=== PATIENT | female | born 1935 | race Two or more races ===

== ENCOUNTER 2021-10-25 11:05 | Emergency (ER) | payer OTHER ==
[~2021-10-25] VITALS: Ht 160 cm; Wt 52.2 kg
[2021-10-25] MEDS ORDERED: TENORMIN50 M1 PO (11:40)
[2021-10-25] MEDS ORDERED: COZAAR50 MG PO (11:40)
[2021-10-25] MEDS ORDERED: IBU800 MG PO (12:49)
[2021-10-30] MEDS ORDERED: LEVOTHYROXINE25 MCG PO (13:33)
== END 2021-10-25 13:02 | disposition home or self-care (01) ==
LOC: ER 11:05
DX: S52.511A Displaced fracture of right radial styloid process, initial encounter for closed fracture (principal); W01.0XXA Fall on same level from slipping, tripping and stumbling without subsequent striking against object, initial encounter; Y93.89 Activity, other specified; Y92.89 Other specified places as the place of occurrence of the external cause; Y99.8 Other external cause status; E03.9 Hypothyroidism, unspecified; I10 Essential (primary) hypertension; Z86.73 Personal history of transient ischemic attack (TIA), and cerebral infarction without residual deficits

== ENCOUNTER 2021-10-31 07:30 | Day surgery (SDC) | payer OTHER ==
[~2021-10-31] VITALS: Ht 160 cm; Wt 54.4 kg
[~2021-10-31 07:30] MED LIST: COZAAR50 MG PO; IBU800 MG PO; LEVOTHYROXINE25 MCG PO; TENORMIN50 M1 PO
== END 2021-10-31 15:45 | disposition home or self-care (01) ==
LOC: CIR.AMB 07:30
PROVIDERS: ATTEND Orthopaedic Surgery
DX: S52.571A Other intraarticular fracture of lower end of right radius, initial encounter for closed fracture (principal); M62.431 Contracture of muscle, right forearm; M65.4 Radial styloid tenosynovitis [de Quervain]; I10 Essential (primary) hypertension; Z95.0 Presence of cardiac pacemaker; E03.9 Hypothyroidism, unspecified; Z20.822 Contact with and (suspected) exposure to COVID-19
CPT/HCPCS: 20902; 25609; L8699

== ENCOUNTER → 2021-11-26 | Outpatient (CLI) | payer OTHER | END | disposition home or self-care (01) | LOC: RAD 10:47 | PROVIDERS: ATTEND Orthopaedic Surgery | DX: S52.571D Other intraarticular fracture of lower end of right radius, subsequent encounter for closed fracture with routine healing (principal) ==

== ENCOUNTER 2022-02-04 08:16 | Outpatient (CLI) | payer OTHER | END 2022-02-04 08:17 | disposition home or self-care (01) | LOC: RAD 08:16 | PROVIDERS: ATTEND Orthopaedic Surgery | DX: S52.571D Other intraarticular fracture of lower end of right radius, subsequent encounter for closed fracture with routine healing (principal) ==

== ENCOUNTER 2022-02-24 08:16 | Outpatient (CLI) | payer OTHER | END 2022-02-24 08:17 | disposition home or self-care (01) | LOC: LAB 08:16 | PROVIDERS: ATTEND Orthopaedic Surgery | DX: D64.9 Anemia, unspecified (principal); E88.9 Metabolic disorder, unspecified; D68.8 Other specified coagulation defects; N39.0 Urinary tract infection, site not specified; A49.02 Methicillin resistant Staphylococcus aureus infection, unspecified site; I10 Essential (primary) hypertension; Z76.89 Persons encountering health services in other specified circumstances ==

== ENCOUNTER 2022-02-24 13:30 | Outpatient (CLI) | payer OTHER | END 2022-02-24 13:31 | disposition home or self-care (01) | LOC: NUCLEAR 13:30 | PROVIDERS: ATTEND Orthopaedic Surgery | DX: M81.0 Age-related osteoporosis without current pathological fracture (principal) ==

== ENCOUNTER 2022-04-16 10:36 | Outpatient (CLI) | payer OTHER | END 2022-04-16 10:44 | disposition home or self-care (01) | LOC: RAD 10:36 | PROVIDERS: ATTEND Orthopaedic Surgery | DX: M25.531 Pain in right wrist (principal) ==

== ENCOUNTER 2022-06-09 08:48 | Outpatient (CLI) | payer OTHER | END 2022-06-09 08:49 | disposition home or self-care (01) | LOC: LAB 08:48 | PROVIDERS: ATTEND Orthopaedic Surgery | DX: E55.9 Vitamin D deficiency, unspecified (principal); M85.9 Disorder of bone density and structure, unspecified; E56.1 Deficiency of vitamin K; E21.3 Hyperparathyroidism, unspecified; E88.9 Metabolic disorder, unspecified; M81.8 Other osteoporosis without current pathological fracture ==